=== PATIENT | female | born 1995 | race Two or more races ===

== ENCOUNTER 2024-12-28 13:29 | Emergency (ER) | payer MEDICAID, OTHER ==
[~2024-12-28] VITALS: Ht 165.1 cm; Wt 81.6 kg
[2024-12-28] MEDS: ONDANSETRON HCL/PF 4 MG/2 ML VIAL IVP ONE (14:30)
[2024-12-28] MEDS: IV NS 0.9% 1,000 ML BAG IV ONE (14:30)
[2024-12-28] MEDS: KETOROLAC TROMETHAMINE 15 MG/ML VIAL IV ONE (14:30)
[2024-12-28] MEDS ORDERED: ONDANSETRON HCL/PF 4 MG/2 ML VIAL ONE (14:43)
[2024-12-28 15:02] LABS: PLATELET COUNT (AUTO) 247 K/uL (150-450); RED BLOOD CELL COUNT(AUTO) 4.67 MIL/uL (4.0-5.2); RED CELL DISTRIBUTION WIDTH 13.7 % (11.5-15.0); WHITE BLOOD COUNT (AUTO) 6.4 K/uL (4.3-11.0)
[2024-12-28 15:12] LABS: CALCIUM, SERUM 8.9 mg/dL (8.5-10.1); CREATININE 0.6 mg/dL (0.6-1.3); SODIUM SERUM 141 mmol/L (136-145); UREA NITROGEN, BLOOD 14 mg/dL (7-18)
[2024-12-28 15:17] LABS: APPEARANCE,URINE CLEAR (CLEAR); BLOOD, URINE TRACE-INTA Ery/uL (NEGATIVE); LEUKOCYTE ESTERASE ,URINE NEGATIVE (NEGATIVE); NITRITE, URINE NEGATIVE (NEGATIVE); UGLUCOSE NEGATIVE (NEGATIVE)
[2024-12-28 15:18] LABS: ASPARTATE AMINOTRANSFERASE 26 U/L (15-37); TOTAL PROTEIN, SERUM 7.9 g/dL (6.4-8.2)
[2024-12-28 15:22] LABS: PREGNANCY TEST URINE QUAL NEGATIVE (NEGATIVE)
[2024-12-28 15:29] LABS: ADD URINE CULTURE NO
[2024-12-28] MEDS ORDERED: KETOROLAC TROMETHAMINE 15 MG/ML VIAL ONE (15:32)
[2024-12-28] MEDS ORDERED: AMOX-430 PO (17:27)
[2024-12-28] MEDS ORDERED: LEVO25TA7 PO (17:27)
[2024-12-28 17:48] VITALS: BP 117/80; TEMP 98.4; O2SAT 99
== END 2024-12-28 17:45 | disposition home or self-care (01) ==
LOC: ER 13:35
DX: E07.9 Disorder of thyroid, unspecified (principal); R07.89 Other chest pain; R10.9 Unspecified abdominal pain; R51.9 Headache, unspecified; M54.9 Dorsalgia, unspecified; K38.1 Appendicular concretions; K52.9 Noninfective gastroenteritis and colitis, unspecified; Z79.890 Hormone replacement therapy; Z87.442 Personal history of urinary calculi
CPT/HCPCS: 99285; 74176; 93970; 96374; 71045; 96361; 96375; 93005; 85025; 80048; 83690; 80076; 84703; 81001; 36415; 84439; 84443; 84484; J1885; J2405; J7030